=== PATIENT | male | born 2000 | race Caucasian/White ===

== ENCOUNTER 2025-04-02 | Emergency (ER) | payer OTHER, SELFPAY ==
--- OUTSIDE RECORDS SUMMARY | 2014-12-18 08:56 | XMS_ITS | Continuity of Care Document ---
Author Organization [facility] Address [address] [address] [place] [address] Phone Care Team Providers Care Mechanical Product Design Engineer Name Role Phone Ernesto MCFARLAND, Patrick Roberts Unavaila ble Medications Medication Instructions Dosage Effective Dates (start - stop) Status Comments Correctol 5 mg tablet take 1 tablet by o ral route every day as needed for constipation 5 MG - Active senna 8.6 mg tablet take 1 Tablet by ora l route every day 1 Tablet - Active multivitamin tablet take 1 tablet by ora l route every day with food - Active Probiotic 10 billion cell capsule take 1 capsule by oral route every day 1 capsule - Active Strattera 40 mg capsule take 1 capsule by oral route every day in the morning 40 MG - Active Adderall 10 mg tablet take 1 tablet by o ral route every day before breakfast 10 MG - Active Fish Oil 1,000 mg capsule take 1 Capsule by Oral route every day - Active Procedures Procedure Date Offic/outpt E&m New Mod-hi Routine Serum Collection General Health Panel C-reactive Prot Lipase Advance Directives Directive Yes / No Effective Date File Name No Information Encounters Encounter Description Practice Location Reason(s) For Visit Diagnoses Date Provider Providers Copied on Encounter [facility], [address] [address], [place], [id number], [place] tel:[phone] [facility] No Information 5 Ernesto patel [address] [facility], [place], [place], [id number] , [place]. [phone] Offic/outpt E&m New Mod-hi [facility] [address], [place], [id number], [place] tel:[phone] [facility] GI Symptoms or Concerns (chief complaint) Abd Pain GeneralizedConstipa tion Unspecified 5 Ernesto nath. [address] [facility], [address], [place], [place], [id number] , [place]. tel:[phone] Referring Provider: Referral Self, USE FOR SELF REFERRALS. Family History Family Member Type Diagnosis Age At Onset Mother Problem (finding) Alive and well Sister Problem (finding) Alive and well Father Problem (finding) Alive and well Immunizations Vaccine Date Status Comments Influenza virus vaccine, injectable, quadrivalent, split virus, preservative free, 3 years or older Fluarix, Flulaval or Fluzone Quad administered Note: Invalid docume nted admin date was . ; Source: Other Provider Payers Payer name Insurance type Covered constitution party ID Authoriza tiyaakov(s) [employer] [facility] [id number] Social History Type Description Quantity Date Captured Comments Alcohol Use Details Unknown Caffeine Use Details Unknown Tobacco Use Status No Information Smoking Status No Information Sex Male Chief Complaint And Reason For Visit No Information Reason For Referral Reason For Referral No Information Plan Of Treatment Date Type Action Status Referral Ordered: Abdomen Ultrasound; Complete Appointment date/timeframe: 12/14/2014 ordered History Of Present Illness Encounter Date Complaint History Of Prese nt Illness GI Symptoms or Concerns This is a 14-year-old white male with the history of chronic abdominal pain and constipation for more than six months for initial evaluation.Иван is a 14-year-old white male with history of ADHD, anxiety, and depression, takes strattera and adderall for many years. He has history of generalized abdominal pain worse in the morning and in the middle of the school associated with intense cramp of grade 9 in the scale of 0 to 10. His pain is unrelated to eating or physical activity. He reports relief often with defecation. He has a history of stooling difficulty. He goes to the restroom several times a day reports having diarrhea with frequent loose stools. I note he was [facility] room on 07/24[facility]. His abdominal x-ray during the ER visit showed mild amount of stool throughout the colon without bowel obstruction. His urinalysis was normal. He was given enema followed by instruction to take MiraLax regularly. Mother reports taking MiraLax on a da Functional Status Date Functional Assessmen t No Information Instructions Date Instruction Additional Infor lee ann 1. Screening blood t ests for CBC, comprehensive metabolic panel, C-reactive protein, lipase, complete celiac panel, and H. pylori antibody will be done.2. Ultrasound scan of the abdomen to rule out biliary urological disorder.3. Prescription for senna one tablet or alternatively bisacodyl one tablet can be tried to keep his constipation under control.4. If his abdominal pain persists may consider adding omeprazole 20 mg daily.5. Followup in two to three months.6. If his abdominal pain persist despite above measures may need endoscopy and colonoscopy to rule out mucosal lesions. Related to Abd Pain Generalized Abdomen Ultrasound; Complete Assessments Type Assessment Date No Information Patient Care Teams Name Effective Dates (start - stop) Status Members No Information
--- OUTSIDE RECORDS SUMMARY | 2014-12-18 08:56 | XMS_ITS | Continuity of Care Document ---
Author Organization [facility] Address [address] [address] [place] [address] Phone Care Team Providers Care Vermin Exterminator Name Role Phone Ernesto MCFARLAND, Patrick Roberts [...] Encounter [facility], [address] [address], [place], [id number], [place] tel:[phone] Pediatric [facility] No Information 5 Ernesto patel [address] [facility], [address], [place], [place], [id number] , [place]. [phone] Offic/outpt E&m New Mod-hi [facility], [address] [address], [place], [id number], [place] tel:[phone] [facility] GI Symptoms or Concerns (chief complaint) Abd Pain GeneralizedConstipa tion Unspecified 5 Ernesto nath. [address] [facility], [address], [place], [place], [id number] , [place]. tel:[phone] Referring Provider: Referral Self, USE FOR SELF [...] Provider Payers Payer name Insurance type Covered libertarian ID Authoriza tiyaakov(s) [employer] [facility] [id number] Social History Type Description Quantity Date Captured [...]
--- OUTSIDE RECORDS SUMMARY | 2025-04-02 00:02 | XMS_ITS | Clinical Summary ---
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/2016 Immunizations Immunization Administration Dates Next Due Comvax (HIB/HepB) 08/11/2003,2002,10/11/19 03 DTAP (<7y) 02/01/2008, 4,02/07/2003,2002,2002 HPV9 (Gardasil) 06/23/2019,11/04/2018 Influenza Intranasal Vaccine 07/25/2014 Influenza Vaccine >6 months,quad, PF 06/2019,07/14/2013,07/10/2011,2006 Influenza vaccine ages 6-35 months 07/17/2004, MMR (MMRII) 02/01/2008,08/11/2003 Meningococcal ACWY (Menactra ) 11/04/2018,05/11/2017 Pneumococcal (PCV 7) 02/07/2003,2002,10/11 Poliovirus, inactivated (IPV) 02/01/2008 ,02/07/2003,2002,2002 TDAP Vaccine (Boostrix) 07/25/2014 Varicella (Varivax) 02/01/2008,08/11/2003 Family History Medical History Relation Comments Cancer Paternal Grandfather throat Relation Status Comments Father Alive Mother Alive Paternal Grandfather Social History Tobacco Use Types Packs/Day Years Used Date Smoking Tobacco: Never Smokeless Tobacco: Never Alcohol Use Standard Drinks/Week Comments No 0 (1 standard drink = 0.6 oz pur e alcohol) Sex and Gender Information Value Date Recorded Sex Assigned at Not on file Legal 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 Gender Identity Not on file Sexual Orientation Not on file Last Filed Vital Signs Vital Sign Reading Time Taken Comments Blood Pressure 120/74 06/23/2019 12:52 PM CDT Pulse 52 06/23/2019 12:52 PM CDT Temperature 36.4 C (97.6 F) 06/23/2019 12:52 PM CDT Respiratory Rate 12 06/23/2019 12:52 PM CDT Oxygen Saturation 98% 06/23/2019 12:52 PM CDT Inhaled Oxygen Concentration - - Weight 77.1 kg (170 lb) 06/23/2019 12:52 PM CDT Height 178.4 cm (5' 10.25) 11/04/2018 3:[address] Body Mass Index 24.22 11/04/2018 3:56 PM HEDIS SPECIALIST Plan of Treatment Not on file Insurance [employer] Care Teams Stone Mason Relationship Specialty Start Date End Date Nate Kerr PA-C PCP - General Physician Speeder Tender - Medical 12/29/16
[2025-04-02 00:07] VITALS: BP 140/92; PULSE 122; RESP 18; TEMP 36.3; O2SAT 95; BMI 33.4
--- NOTE | 2025-04-02 00:16 | CRLHL7_ITS ---
For Patients: As a result of the Century Cures Act, medical imaging exams and procedure reports are released immediately into your electronic medical record. You may view this report before your referring provider. If you have questions, please contact your health care provider. INDICATION: Chest pain. TECHNIQUE: CT chest PE was acquired with 100 cc Omnipaque 350 IV contrast. MIP reconstructions were performed. COMPARISON: None. FINDINGS: Heart and vasculature: Contrast opacification of the pulmonary arterial tree is adequate. No sign of pulmonary embolism. Heart size is normal. Thoracic aorta and pulmonary artery are normal in caliber. Lungs and pleura: No suspicious nodules or infiltrates. No pleural effusions, pleural thickening, or pneumothorax. Lymph nodes/mediastinum: No mediastinal, hilar, or axillary adenopathy. Chest wall: No masses. Upper abdomen: No acute or significant findings. Bones: Unremarkable for age. IMPRESSION: No pulmonary embolism. No focal consolidations. Please note that all CT scans at this facility use dose modulation, iterative reconstruction, and/or weight-based dosing when appropriate to reduce radiation dose to as low as reasonably achievable. Dictated by Amos Rodriguez MD @ 04/02/2025 1:18:42 AM (Electronically Signed)
--- NOTE | 2025-04-02 00:17 | ED.CHESTPAIN ---
HPI - Chest Pain General Chief Complaint: Chest Pain Stated Complaint: chest pains Time Seen by Provider: 04/02/25 00:05 History of Present Illness HPI narrative: Patient is a 24-year-old gentleman comes in today with several days of chest pain. He states that it became more severe today at approximately 2:00 a.m. or 10 hours ago. Pain seems to radiate from his anterior chest to his neck. He has had no fevers no chills no night sweats. He sometimes feels like he is not thinking clearly is been very anxious. He has had no history cardiovascular disease in the past. He has not been using any street drugs. Related Data Allergies Allergy/AdvReac Type Severity Reaction Status Date / Time No Known Drug Allergies Allergy Verified 04/02/25 00:12 Review of Systems Status of ROS Reports: 10 or more systems reviewed and unremarkable except as noted in History and below [facility] Social History Do you use any of these nicotine containing products: Vaping Products How often do you have a drink containing alcohol: 2-3 times a week AUDIT-C Alcohol total score: 3 Non-prescribed substance use: marijuana (any form) Exam Narrative Exam Narrative: EXAM GENERAL: Patient appears comfortable but anxious. EYES: No scleral icterus. ENT: Tympanic membranes and oropharynx normal. THYROID: no thyroid nodules or thyromegaly. LYMPH: No supraclavicular or cervical lymphadenopathy. SKIN: Visible skin seen during exam normal or with benign process only. EXT: No dependent lower extremity pedal edema. HEART: Regular rate and rhythm with no murmurs, rubs, or gallops. LUNGS: Clear to auscultation bilaterally with no crackles or wheezes. ABD: Soft, non tender, non distended. PSYCH: Good eye contact, speech is not pressured. Const Vital Signs, click to edit/add: Vital Signs - 24 hr 04/02/25 00:07 04/02/25 00:28 Temperature 97.3 F L Pulse Rate [Left Pulse Oximeter] 122 H 91 Respiratory Rate 18 Blood Pressure [Right Upper Arm] 140/92 H Pulse Oximetry 95 Oxygen Delivery Method Room Air Course Course ED Course: Patient seen examined troponin CBC comprehensive metabolic panel EKG CT chest PE protocol pending. Vital Signs Vital signs: Initial Vital Signs Temperature 97.3 F L 04/02/25 00:07 Temperature Source Temporal Artery Scan 04/02/25 00:07 Pulse Rate 122 H 04/02/25 00:07 Pulse Rhythm Regular 04/02/25 00:07 Respiratory Rate 18 04/02/25 00:07 Blood Pressure 140/92 H 04/02/25 00:07 Blood Pressure Mean 108 H 04/02/25 00:07 Blood Pressure Position Sitting 04/02/25 00:07 Pulse Oximetry 95 04/02/25 00:07 Oxygen Delivery Method Room Air 04/02/25 00:07 Vital Signs Temperature 97.3 F L 04/02/25 00:07 Pulse Rate 122 H 04/02/25 00:07 Respiratory Rate 18 04/02/25 00:07 Blood Pressure 140/92 H 04/02/25 00:07 Pulse Oximetry 95 04/02/25 00:07 Oxygen Delivery Method Room Air 04/02/25 00:07 Temperature 97.3 F L 04/02/25 00:07 Pulse Rate 91 04/02/25 00:28 Respiratory Rate 18 04/02/25 00:07 Blood Pressure 140/92 H 04/02/25 00:07 Pulse Oximetry 95 04/02/25 00:07 Oxygen Delivery Method Room Air 04/02/25 00:07 MDM - Chest Pain MDM Narrative Medical decision making narrative: Patient is a 24-year-old that presented with chest pain with radiation to his neck. Did consider broad differential including pericarditis keep myocardial infarction pulmonary embolism acute coronary dissection thoracic aneurysm. CT of the chest PE protocol showed no abnormalities troponin is negative electrolytes and CBC her grossly normal. This time of find reassurance Tylenol Motrin rest and fluids with outpatient follow-up as needed. Lab Data Labs: Lab Results 04/02/25 Range/Units 00:46 WBC 14.25 H (4.50-11.00) K/uL RBC 4.97 (4.30-5.90) m/uL Hgb 15.3 (13.5-17.5) gm/dL Hct 43.8 (37.0-53.0) % MCV 88 (80-100) fL MCH 31 (26-34) pg MCHC 35 (32-36) gm/dL RDW Coeff of Analy 12.3 (11.5-15.5) % Plt Count 249 (140-440) K/uL Neut % (Auto) 75.9 H (42.0-72.0) % Lymph % (Auto) 10.5 L (20-44) % Terry % (Auto) 11.9 H (0.0-11.0) % Eos % (Auto) 0.6 (0.0-7.0) % Baso % (Auto) 0.1 (0.0-3.0) % Neut # (Auto) 10.80 H (1.7-7.0) K/uL Lymph # (Auto) 1.50 (0.90-2.90) K/uL Terry # (Auto) 1.70 H (0.00-0.90) K/UL Eos # (Auto) 0.10 (0.00-0.50) K/uL Baso # (Auto) 0.00 (0.00-0.30) K/uL Abs Immat Gran (auto) 0.10 (0.00-0.30) K/uL Imm/Tot Granulo (auto) 1.0 % Sodium 137 (135-149) mmol/L Potassium 4.4 (3.6-5.1) mmol/L Chloride 103 (96-114) mmol/L Carbon Dioxide 25 (20-32) mmol/L Anion Gap 9 (7-15) mEq/L BUN 18 (5-24) mg/dL Creatinine 0.8 (0.5-1.5) mg/dL Estimated Creat Clear 158.97 Estimated GFR 128 ml/min Glucose 104 (60-115) mg/dL Calcium 9.2 (8.4-10.6) mg/dL Total Bilirubin 1.2 (0.1-1.5) mg/dL AST 47 H (12-35) U/L ALT 80 H (4-50) U/L Alkaline Phosphatase 60 (40-150) U/L Troponin I < 0.01 (0.01-0.04) ng/mL Total Protein 7.3 (6.0-8.3) g/dL Albumin 4.6 (3.3-5.0) g/dL Discharge Plan Discharge Clinical Impression: Chest pain Patient Disposition: Home, Self-Care Condition: Stable Instructions: Chest Pain (ED) Additional Instructions: Tylenol Motrin Ice Rest Follow-up with your doctor as needed. Activity Level: No Restrictions Discharge Diet: Regular Follow Up/Referrals: Provider,Not a Local [Primary Care Provider, Family Practice] Stand Alone Forms: [employer] Info Instructions
[2025-04-02 00:28] VITALS: PULSE 91
[2025-04-02 00:53] LABS: Hematocrit 43.8 % (37.0-53.0); Hemoglobin* 15.3 gm/dL (13.5-17.5); Immature Granulocytes Pct Auto 1.0 %; Mean Corpuscular HGB Conc 35 gm/dL (32-36); Mean Corpuscular Hemoglobin 31 pg (26-34); Mean Corpuscular Volume 88 fL (80-100); RDW Coefficient of Variation % 12.3 % (11.5-15.5); Red Blood Count 4.97 m/uL (4.30-5.90); White Blood Count* 14.25 K/uL (4.50-11.00)
[2025-04-02 00:54] LABS: Immature Granulocytes Abs Auto 0.10 K/uL (0.00-0.30); Lymphocytes Absolute Auto 1.50 K/uL (0.90-2.90); Slide Review Reflex No
[2025-04-02 01:01] LABS: Albumin* 4.6 g/dL (3.3-5.0); Chloride* 103 mmol/L (96-114); Potassium* 4.4 mmol/L (3.6-5.1); Sodium* 137 mmol/L (135-149)
[2025-04-02 01:04] LABS: Alanine Aminotransferase* 80 U/L (4-50); Anion Gap 9 mEq/L (7-15); Aspartate Amino Transferase* 47 U/L (12-35); Blood Urea Nitrogen* 18 mg/dL (5-24); Carbon Dioxide* 25 mmol/L (20-32); Creatinine* 0.8 mg/dL (0.5-1.5); Est. Creatinine Clearance* 158.97; Estimated Glomerular Filt Rate 128 ml/min; Total Protein* 7.3 g/dL (6.0-8.3)
[2025-04-02 01:05] LABS: Alkaline Phosphatase* 60 U/L (40-150); Bilirubin Total* 1.2 mg/dL (0.1-1.5); Calcium* 9.2 mg/dL (8.4-10.6); Glucose* 104 mg/dL (60-115)
== END 2025-04-02 01:34 | disposition home or self-care (01) ==
PROVIDERS: Emergency Provider Internal Medicine
DX: R07.9 Chest pain, unspecified (principal)
CPT/HCPCS: 36415; 71275; 80053; 84484; 85025; 93005; 99283; 99284; Q9967